=== PATIENT | female | born 1990 ===

== ENCOUNTER 2018-07-03 08:26 | Emergency (ER) | payer SELFPAY ==
[~2018-07-03] VITALS: Ht 152.4 cm; Wt 72.7 kg
[2018-07-03 10:30] VITALS: BP 108/66
== END 2018-07-03 12:22 | disposition left against medical advice (07) ==
LOC: EMS 08:28
DX: F41.9 Anxiety disorder, unspecified (principal); R11.0 Nausea; Z53.21 Procedure and treatment not carried out due to patient leaving prior to being seen by health care provider

== ENCOUNTER 2025-01-20 00:29 | Emergency (ER) | payer SELFPAY ==
[~2025-01-20] VITALS: Ht 154.9 cm; Wt 52.3 kg
[2025-01-20 00:39] VITALS: BP 110/66; PULSE 112; RESP 17; TEMP 98.1; O2SAT 96
[2025-01-20] MEDS: ONDANSETRON 4 MG TABLET PO ONE (03:28)
== END 2025-01-20 03:37 | disposition home or self-care (01) ==
LOC: EMS 00:29
DX: F15.10 Other stimulant abuse, uncomplicated (principal); F10.129 Alcohol abuse with intoxication, unspecified; Y90.9 Presence of alcohol in blood, level not specified
CPT/HCPCS: 99283; Q0162